=== PATIENT | female | born 1970 | race American Indian/Alaskan Native ===

== ENCOUNTER 2019-03-04 07:19 | Emergency (ER) | payer OTHER ==
[2019-03-04 07:26] VITALS: BP 128/91
[2019-03-04] MEDS ORDERED: IBUPROFEN 800 MG TAB PO ONE (07:41)
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
== END 2019-03-04 07:47 | disposition home or self-care (01) ==
LOC: ED 07:19
DX: M54.5 Low back pain (principal); M79.10 Myalgia, unspecified site; I10 Essential (primary) hypertension; Z79.1 Long term (current) use of non-steroidal anti-inflammatories (NSAID); Z79.899 Other long term (current) drug therapy; V89.2XXA Person injured in unspecified motor-vehicle accident, traffic, initial encounter; Y93.89 Activity, other specified; Y92.488 Other paved roadways as the place of occurrence of the external cause; Y99.8 Other external cause status
CPT/HCPCS: 99283